=== PATIENT | male | born 1935 | race Caucasian/White ===

== ENCOUNTER 2018-11-26 07:18 | Inpatient (IN) | payer MEDICARE, OTHER ==
[~2018-11-26] VITALS: Ht 172.7 cm; Wt 71.2 kg
[2018-11-26] MEDS ORDERED: SIMV20TA6 PO (07:40)
[2018-11-26] MEDS ORDERED: ISOSORBIDE PO (07:40)
[2018-11-26] MEDS ORDERED: METOPROLOL PO (07:40)
[2018-11-26] MEDS ORDERED: TICA60TA MT (07:40)
[2018-11-26] MEDS ORDERED: AMLO5TAB88 MT (07:40)
[2018-11-26] MEDS ORDERED: ASPI-1393 MT (07:40)
[2018-11-26 08:12] LABS: HEMATOCRIT. 36.4 % (42.0-52.0); HEMOGLOBIN. 13.1 g/dL (14.0-18.0); MEAN CORPUSCULAR VOLUME 91.6 fL (80.0-94.0); MEAN PLATELET VOLUME 8.5 fl (7.4-10.4); PLATELET 228 x1000/uL (130-400); RED BLOOD CELL COUNT 3.98 mill/uL (4.7-6.1); RED CELL DISTRIBUTION WIDTH 13.1 % (11.6-14.6)
[2018-11-26 08:18] LABS: CHLORIDE 99 mEq/L (98-107)
[2018-11-26 08:22] LABS: ETHANOL BLOOD < 10 mg/dL
[2018-11-26 08:26] LABS: LDL CHOLESTEROL 70 mg/dL (5-100)
[2018-11-26 08:28] LABS: INR 1.1
[2018-11-26] MEDS ORDERED: ASPIRIN 325MG TABLET PO ONE (08:30)
[2018-11-26 08:31] LABS: CLARITY URINE CLEAR (CLEAR); COLOR URINE YELLOW (YELLOW); KETONES URINE NEGATIVE (NEGATIVE); LEUKOCYTE ESTERASE URINE NEGATIVE (NEGATIVE); NITRITE URINE NEGATIVE (NEGATIVE); OCCULT BLOOD URINE NEGATIVE (NEGATIVE); PROTEIN URINE NEGATIVE (NEGATIVE); SPECIFIC GRAVITY URINE 1.018 (1.005-1.030); UROBILINOGEN URINE 0.2 E.U./dL (0.2-1.0)
[2018-11-26 09:03] LABS: METHADONE URINE SCREEN NEGATIVE (NEGATIVE)
[2018-11-26 09:05] LABS: *AMPHETAMINES SCREEN URINE NEGATIVE (NEGATIVE); *BARBITURATES SCREEN URINE NEGATIVE (NEGATIVE); *BENZODIAZEPINES SCREEN URINE NEGATIVE (NEGATIVE); *COCAINE SCREEN URINE NEGATIVE (NEGATIVE); CANNABINOID URINE SCREEN NEGATIVE (NEGATIVE); OPIATES URINE SCREEN NEGATIVE (NEGATIVE); PHENCYCLIDINE URINE SCREEN NEGATIVE (NEGATIVE)
[2018-11-26 09:30] LABS: PLATELET ESTIMATE NORMAL
[2018-11-26 16:50] VITALS: BP 139/77
[2018-11-26 20:00] VITALS: BP 122/56
[2018-11-26] MEDS ORDERED: ONDANSETRON HCL 4MG/2ML INJ IV PRN (22:30)
[2018-11-26] MEDS ORDERED: DIPHENHYDRAMINE 50MG/ML VIAL IV PRN (22:30)
[2018-11-26] MEDS ORDERED: MY50 MT (22:30)
[2018-11-26] MEDS ORDERED: ACETAMINOPHEN 325MG TABLET PO PRN (22:30)
[2018-11-26] MEDS ORDERED: MAGNESIUM HYDROXIDE 400MG/5ML 30ML UDC PO PRN (22:30)
[2018-11-26] MEDS ORDERED: MAGNESIUM/ALUMINUM HYDROXIDE/SIMETHICONE 30ML UDC PO PRN (22:30)
[2018-11-27] VITALS: BP 123/62
[2018-11-27 04:00] VITALS: BP 121/62
[2018-11-27] MEDS: SODIUM CHLORIDE 0.9% INJ 3ML FLUSH IVF SCH ×3 (05:58→21:50)
[2018-11-27] MEDS: NITROGLYCERIN OINT 1GM/INCH UDPKT TD SCH ×3 (05:58→21:50)
[2018-11-27 08:00] VITALS: BP 120/69
[2018-11-27] MEDS ORDERED: CLOPIDOGREL 75MG TABLET PO SCH (09:00)
[2018-11-27] MEDS: DOCUSATE SODIUM 100MG CAPSULE PO SCH ×2 (09:38→16:54)
[2018-11-27] MEDS: ENOXAPARIN 40MG/0.4ML SYR SUBCUT SCH (09:38)
[2018-11-27] MEDS: PRIMIDONE 50MG TABLET PO SCH (09:39)
[2018-11-27] MEDS: FAMOTIDINE 20MG TABLET PO SCH ×2 (09:40→21:45)
[2018-11-27] MEDS: METOPROLOL TARTRATE 25MG TABLET PO SCH ×2 (09:40→21:46)
[2018-11-27] MEDS: ASPIRIN 81MG EC TABLET PO SCH (09:40)
[2018-11-27 12:00] VITALS: BP 122/63
[2018-11-27 16:17] VITALS: BP 106/68
[2018-11-27 20:00] VITALS: BP 124/64
[2018-11-27] MEDS: ATORVASTATIN CALCIUM 20MG TABLET PO SCH (21:45)
[2018-11-28] VITALS (7 sets, daily range): BP systolic 100–125; BP diastolic 50–71
[2018-11-28] MEDS: NITROGLYCERIN OINT 1GM/INCH UDPKT TD SCH ×3 (05:40→21:31)
[2018-11-28] MEDS: SODIUM CHLORIDE 0.9% INJ 3ML FLUSH IVF SCH ×3 (05:40→21:32)
[2018-11-28] MEDS ORDERED: TICAGRELOR 90 MG TABLET PO SCH (09:00)
[2018-11-28] MEDS: DOCUSATE SODIUM 100MG CAPSULE PO SCH ×2 (09:00→18:36)
[2018-11-28] MEDS: ASPIRIN 81MG EC TABLET PO SCH (09:33)
[2018-11-28] MEDS: ENOXAPARIN 40MG/0.4ML SYR SUBCUT SCH (09:33)
[2018-11-28] MEDS: PRIMIDONE 50MG TABLET PO SCH (09:33)
[2018-11-28] MEDS: METOPROLOL TARTRATE 25MG TABLET PO SCH ×2 (09:33→21:31)
[2018-11-28] MEDS: TICAGRELOR 60 MG TABLET PO SCH ×2 (09:33→18:36)
[2018-11-28] MEDS: FAMOTIDINE 20MG TABLET PO SCH ×2 (09:34→21:31)
[2018-11-28] MEDS: ATORVASTATIN CALCIUM 20MG TABLET PO SCH (21:30)
[2018-11-29] VITALS: BP 121/65
[2018-11-29 04:00] VITALS: BP 121/57
[2018-11-29] MEDS: SODIUM CHLORIDE 0.9% INJ 3ML FLUSH IVF SCH ×3 (06:36→21:05)
[2018-11-29] MEDS: NITROGLYCERIN OINT 1GM/INCH UDPKT TD SCH ×3 (06:36→21:05)
[2018-11-29 07:53] VITALS: BP 141/72
[2018-11-29] MEDS: DOCUSATE SODIUM 100MG CAPSULE PO SCH ×2 (09:00→17:00)
[2018-11-29] MEDS: TICAGRELOR 60 MG TABLET PO SCH ×2 (09:31→17:10)
[2018-11-29] MEDS: ENOXAPARIN 40MG/0.4ML SYR SUBCUT SCH (09:31)
[2018-11-29] MEDS: FAMOTIDINE 20MG TABLET PO SCH ×2 (09:31→20:46)
[2018-11-29] MEDS: PRIMIDONE 50MG TABLET PO SCH (09:31)
[2018-11-29] MEDS: ASPIRIN 81MG EC TABLET PO SCH (09:32)
[2018-11-29] MEDS: METOPROLOL TARTRATE 25MG TABLET PO SCH ×2 (09:32→20:46)
[2018-11-29 12:00] VITALS: BP 117/62
[2018-11-29 16:00] VITALS: BP_SYST 122; BP_SYST 132; BP_DIAS 62; BP_DIAS 65
[2018-11-29 20:00] VITALS: BP 141/70
[2018-11-29] MEDS: ATORVASTATIN CALCIUM 20MG TABLET PO SCH (20:46)
[2018-11-30] VITALS (7 sets, daily range): BP systolic 116–153; BP diastolic 60–77
[2018-11-30] MEDS: NITROGLYCERIN OINT 1GM/INCH UDPKT TD SCH ×2 (06:05→14:00)
[2018-11-30] MEDS: SODIUM CHLORIDE 0.9% INJ 3ML FLUSH IVF SCH ×2 (06:06→16:52)
[2018-11-30] MEDS: METOPROLOL TARTRATE 25MG TABLET PO SCH (08:33)
[2018-11-30] MEDS: ASPIRIN 81MG EC TABLET PO SCH (08:33)
[2018-11-30] MEDS: ENOXAPARIN 40MG/0.4ML SYR SUBCUT SCH (08:33)
[2018-11-30] MEDS: FAMOTIDINE 20MG TABLET PO SCH (08:33)
[2018-11-30] MEDS: PRIMIDONE 50MG TABLET PO SCH (08:33)
[2018-11-30] MEDS: TICAGRELOR 60 MG TABLET PO SCH ×2 (08:33→17:10)
[2018-11-30] MEDS: DOCUSATE SODIUM 100MG CAPSULE PO SCH ×2 (08:34→17:00)
== END 2018-11-30 18:09 | disposition home or self-care (01) | DRG 65 ==
LOC: ER 07:18 → EDBEDREQ 09:02 → EDBEDREQSVC 09:02 → 8WST 10:41 → EDBEDREQ 10:43 → ENRESERV 15:42
PROVIDERS: ADMIT Internal Medicine; ATTEND Internal Medicine
DX: I63.9 Cerebral infarction, unspecified (principal); G81.94 Hemiplegia, unspecified affecting left nondominant side; E78.00 Pure hypercholesterolemia, unspecified; I10 Essential (primary) hypertension; I25.10 Atherosclerotic heart disease of native coronary artery without angina pectoris; S69.92XA Unspecified injury of left wrist, hand and finger(s), initial encounter; X58.XXXA Exposure to other specified factors, initial encounter; G25.0 Essential tremor; E78.5 Hyperlipidemia, unspecified; H50.10 Unspecified exotropia; Z95.1 Presence of aortocoronary bypass graft; Z79.82 Long term (current) use of aspirin; Y93.89 Activity, other specified; Y92.89 Other specified places as the place of occurrence of the external cause; Y99.8 Other external cause status
CPT/HCPCS: 36415; 70551; 71045; 73130; 80061; 80305; 80320; 82962; 83721; 84443; 84484; 86850; 86900; 92523; 93005; 93306; 93880; 97116; 97162; 97166; 97530; 97535; 99291; J1650; G0480